=== PATIENT | male | born 2005 | race Caucasian/White ===

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

== ENCOUNTER 2023-12-20 09:20 | Outpatient (CLI) | payer OTHER, SELFPAY ==
[2023-12-22 11:12] LABS: Hemoglobin A1C 7.3 % (<5.7)
== END 2023-12-20 09:21 | disposition home or self-care (01) ==
PROVIDERS: PCP Family Medicine; Visit Provider Family Medicine
DX: E11.9 Type 2 diabetes mellitus without complications (principal)
CPT/HCPCS: 36415; 83036

== ENCOUNTER 2025-03-08 11:27 | Outpatient (CLI) | payer OTHER, SELFPAY ==
--- OUTSIDE RECORDS SUMMARY | 2025-03-08 11:29 | XMS_ITS | Clinical Summary ---
Author Organization [facility] Address [address] [place] [address] Care Team Providers Care [employer] Supervisor Name Role Phone Dave Chauhan MD Primary Care Provider [phone] Source Comments [facility],non-owned Affiliates and Associated Physician Practices is amultiple site organization consisting of ambulatory clinics and hospital sitesin [place], [place], [place] and [place]. This disclosure is being madepursuant to the Care Everywhere program and may not contain all information available regarding this patient. Last updated 18.[facility] Allergies No known active allergies Medications * Be aware that medications may not be up to date on this document. Alwaysverify current medications with the patient. loratadine (CLARITIN) 10 MG tablet Take 10 mg by mouth once daily. Active lansoprazole, disintegrating, (PREVACID SOLUTAB) 15 MG tabletIndication s:Abdominal pain, generalized Take 1 Tab by mouth 2 times daily before meals. 30 Tab 5 06/27/2012 Active Active Problems Problem Noted Date Diagnosed Date Abdominal pain, generalized 12/03/2010 Obesity 12/03/2010 Ileus, postoperative 11/18/2009 Family History Medical History Relation Name Comments Cancer Father Cancer - Pancreatic Father at 30 yrs old. GERD - Gastroesophageal Refl ux Disease Father Depression Maternal Aunt Depression Maternal Grandfather Diabetes Maternal Grandfather Heart Failure Maternal Grandfather Hypercholesterolemia Maternal Grandfather Arthritis - Osteo Maternal Grandmother Diabetes Maternal Grandmother Asthma Mother Depression Mother Diabetes Paternal Grandfather Diabetes Paternal Grandmother Relation Name Status Comments Father Maternal Aunt Maternal Grandfather Maternal Grandmother Mother Alive Other father Paternal Grandfather Paternal Grandmother Social History Tobacco Use Types Packs/Day Years Used Date Smoking Tobacco: Passive Smo ke Exposure - Never Smoker Alcohol Use Standard Drinks/Week Comments No 0 (1 standard drink = 0.6 oz pur e alcohol) Sex and Gender Information Value Date Recorded Sex Assigned at Not on file 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 Gender Identity Not on file Sexual Orientation Not on file Last Filed Vital Signs Vital Sign Reading Time Taken Comments Blood Pressure 103/57 08/20/2012 8:05 AM CDT Pulse 72 08/20/2012 8:05 AM CDT Temperature 36.6 C (97.8 F) 08/20/2012 8:05 AM CDT Respiratory Rate 18 08/20/2012 8:05 AM CDT Oxygen Saturation 99% 08/20/2012 8:05 AM CDT Inhaled Oxygen Concentration - - Weight 56.2 kg (124 lb) 08/20/2012 6:10 AM CDT Height 142.8 cm (4' 8.22) 08/20/2012 6:10 AM CD T Body Mass Index 27.58 08/20/2012 6:10 AM CDT Plan of Treatment Health Maintenance Due Date Last Done Comments HIV SCREENING 2018 HPV VACCINE (1 - Male 3-dose series) 2018 MENINGOCOCCAL (Group B) VACC INE SHARED DECISION-MAKING (1 of 2 - Standard) 2019 HEPATITIS C SCREENING 04/23/2021 DTAP/TDAP/TD VACCINES (1 - Tdap) 2022 HEPATITIS B VACCINE (1 of 3 - 19+ 3-dose series) 2022 DEPRESSION SCREENING 04/17/2024 COVID-19 VACCINE (1 - 2024-2 6 season) 2024 INFLUENZA VACCINE (#1) 2024 ZOSTER VACCINE (1 of 2) 2053 HIB VACCINE Aged Out No longer eligi ble based on patient's age to complete this topic MENINGOCOCCAL GROUPS A/C/Y/W VACCINE Aged Out No longer eligible b ased on patient's age to complete this topic PNEUMOCOCCAL VACCINE Aged Out No long er eligible based on patient's age to complete this topic Insurance MEDICAID - [place] Care Teams [employer] Supervisor Relationship Specialty Start Date End Date Dave Chauhan MD [address] [place] [id number] PCP - General 12/13/10
--- OUTSIDE RECORDS SUMMARY | 2025-03-08 11:29 | XMS_ITS | Clinical Summary ---
Author Organization [facility] Address [address] [place] [id number] Care Team Providers Care Segmental Paving Supervisor Name Role Phone Aurea Foss SOFIA Primary Care Provide r Allergies No known active allergies Medications traMADoL (ULTRAM) 50 mg tablet 03/18/2021 Active Active Problems Problem Noted Date Diagnosed Date Patellar instability of left knee 03/31/2021 Obesity 12/03/2010 Abdominal pain, generalized 12/03/2010 Postoperative ileus 11/18/2009 Social History Tobacco Use Types Packs/Day Years Used Date Smoking Tobacco: Never Personal Safety Answer Date Recorded Getting School Help Needed Not on file 07/01 Sex and Gender Information Value Date Recorded Sex Assigned at Not on file Legal Sex Male 3:39 PM [employer] Gender Identity Not on file Sexual Orientation Not on file Last Filed Vital Signs Vital Sign Reading Time Taken Comments Blood Pressure - - Pulse - - Temperature - - Respiratory Rate - - Oxygen Saturation - - Inhaled Oxygen Concentration - - Weight 120.2 kg (265 lb) 03/24/2021 8:38 AM [employer] Height 182.9 cm (6') 03/24/2021 8:38 AM [employer] Body Mass Index 35.94 03/24/2021 8:38 AM [employer] Plan of Treatment Not on file Insurance [facility] Care Teams Segmental Paving Supervisor Relationship Specialty Start Date End Date Aurea Foss NP [address] [place] [address] PCP - General Nurse Practitioner 05/05/21
[2025-03-08 11:54] LABS: Hemoglobin A1C 5.4 % (<5.7)
[2025-03-08 12:00] LABS: MALB Creatinine Ratio 4.1 mg/g (0-30)
[2025-03-08 12:39] LABS: Alanine Aminotransferase 30 U/L (6-50); Albumin Level 4.9 g/dL (3.5-5.1); Alkaline Phosphatase 47 U/L (38-126); Anion Gap 13 mmol/L (4-12); Aspartate Amino Transferase 29 U/L (17-59); Bilirubin,Total 1.1 mg/dL (0.2-1.3); Blood Urea Nitrogen 20 mg/dL (9-20); Calcium 9.7 mg/dL (8.4-10.2); Carbon Dioxide 25 mmol/L (22-30); Chloride 106 mmol/L (98-107); Cholesterol 160 mg/dL (0-200); Estimated Glomerular Filt Rate > 60; Glucose 116 mg/dL (65-110); HDL Direct 44 mg/dL; Osmolality Calculated 301 mOsm/kg (285-295); Potassium 4.4 mmol/L (3.4-5.0); Sodium 144 mmol/L (137-145); Total Protein 7.3 g/dL (6.3-8.2); Triglycerides 103 mg/dL (<150)
== END 2025-03-08 11:28 | disposition home or self-care (01) ==
LOC: CHSLAB 11:28
PROVIDERS: PCP Family Medicine; Visit Provider Nurse Practitioner Family
DX: Z13.6 Encounter for screening for cardiovascular disorders (principal); E11.9 Type 2 diabetes mellitus without complications
CPT/HCPCS: 36415; 80053; 80061; 82043; 83036